=== PATIENT | female | born 1960 | race African-American/Black ===

== ENCOUNTER 2025-08-13 11:42 | Observation (INO) ==
[2025-08-13] MEDS ORDERED: PRECEDEX INJ VIAL ONE (12:09)
[2025-08-13] MEDS ORDERED: KETAMINE HCL ONE (12:09)
[2025-08-13] MEDS ORDERED: XYLOCAINE 2 % (PLAIN) ONE (12:09)
[2025-08-13 13:49] LABS: MEAN PLATELET VOLUME 9.3 fL (7.4-11.0); RED CELL DISTRIBUTION WIDTH 14.4 % (11.6-16.5)
[2025-08-13 14:04] LABS: COR CA(FOR HYPOALB) 9.4 mg/dL (8.5-10.1); COR NA(FOR HYPERGLY) 146 mmol/L (136-145); CREATININE 1.12 mg/dL (0.55-1.02); eGFR NON BLACK RACES 52 (>60)
[2025-08-13 14:25] VITALS: BMI 36.0
[2025-08-13] MEDS: PERCOCET TAB 5/325 MG PO PRN (14:45)
[2025-08-13] MEDS: LR 1,000 ML IV 1,000 ML IV SCH (14:45)
--- NOTE | 2025-08-13 14:45 | EKG ---
Test Reason : pre procedure Blood Pressure : */* mmHG Vent. Rate : 87 BPM Atrial Rate : 87 BPM P-R Int : 158 ms QRS Dur : 82 ms QT Int : 346 ms P-R-T Axes : 54 51 53 degrees QTc Int : 416 ms Sinus rhythm with sinus arrhythmia with occasional premature ventricular complexes Septal infarct , age undetermined Abnormal ECG No previous ECGs available Confirmed by Ren Olson MD ([id number]) on 08/13/2025 5:15:48 PM Referred By: Confirmed By: Ren Olson MD
[2025-08-13] MEDS: LOVENOX INJ 100 MG SYR SC NR (16:39)
[2025-08-13] MEDS: NovoLIN R (or HumuLIN R) SUBCUT PRN (16:40)
[2025-08-13] MEDS: SNACK - Diabetic Appropriate PO SCH (20:00)
[2025-08-13] MEDS: SINGULAIR TAB 10 MG PO SCH (20:43)
[2025-08-14] MEDS ORDERED: HIBICLENS WASH EXT ONE (00:54)
[2025-08-14 05:49] LABS: MEAN PLATELET VOLUME 9.2 fL (7.4-11.0); RED CELL DISTRIBUTION WIDTH 14.6 % (11.6-16.5)
[2025-08-14 06:06] LABS: COR CA(FOR HYPOALB) 9.5 mg/dL (8.5-10.1); COR NA(FOR HYPERGLY) 145 mmol/L (136-145); CREATININE 1.04 mg/dL (0.55-1.02); eGFR NON BLACK RACES 57 (>60)
--- NOTE | 2025-08-14 06:09 | RAD ---
EXAM: Portable chest HISTORY: Preop vascular surgery COMPARISON: None FINDINGS: Heart is mildly enlarged. No congestive heart failure is noted. Aorta is ectatic. Lungs are mildly hypoinflated but free of acute infiltrates. No pleural effusion or pneumothorax identified. Bony thorax is unremarkable. IMPRESSION: Mild cardiomegaly without congestive heart failure Lungs hypoinflated but free of acute infiltrates THIS IS AN ELECTRONICALLY VERIFIED FINAL REPORT 08/14/2025 6:06 AM - Electronically signed by Jerod Foster MD
[2025-08-14] MEDS ORDERED: CONSULT PHARMACY - POTASSIUM & MAGNESIUM XX SCH (07:00)
[2025-08-14] MEDS: MAGNESIUM SULFATE 1 GRAM/100 mL PREMIX 1 G/100 ML BAG IV SCH (09:26)
[2025-08-14] MEDS: HIBICLENS WASH EXT ONE (10:30)
[2025-08-14] MEDS: REGLAN INJ 10 MG VIAL ONE (10:54)
[2025-08-14] MEDS: OFIRMEV IV 1000 MG VIAL 1,000 MG/100 ML VIAL IV ONE (10:54)
[2025-08-14] MEDS: HEPARIN SODIUM INJ 5000 UNITS ONE (10:54)
[2025-08-14] MEDS: ZOFRAN INJ 4 MG VIAL ONE (10:54)
[2025-08-14] MEDS: PEPCID 20 MG VIAL ONE (10:54)
[2025-08-14] MEDS: DIPRIVAN VIAL 20 ML ONE ×3 (10:54→12:52)
[2025-08-14] MEDS: VERSED ONE (10:55)
[2025-08-14] MEDS: FENTANYL VIAL INJ 100 mcg ONE (10:56)
[2025-08-14] MEDS: ANCEF VIAL 1 GRAM ONE (11:10)
[2025-08-14] MEDS: NS 1,000 ML IV 1,000 ML ONE ×2 (11:11→12:10)
[2025-08-14] MEDS: VERSED IVP PRN (11:21)
[2025-08-14] MEDS: ZOFRAN INJ 4 MG VIAL IVP PRN (11:21)
[2025-08-14] MEDS: REGLAN INJ 10 MG VIAL IVP PRN (11:21)
[2025-08-14] MEDS: PEPCID 20 MG VIAL IVP PRN (11:21)
[2025-08-14] MEDS: NS 100 ML IV 100 ML ONE (11:26)
[2025-08-14] MEDS: ANCEF VIAL 1 GRAM IV PRN (11:32)
[2025-08-14] MEDS: NS 1,000 ML IV 800 ML IV PRN (11:32)
[2025-08-14] MEDS: XYLOCAINE 2 % (PLAIN) IVP PRN (11:37)
[2025-08-14] MEDS: PRECEDEX INJ VIAL IVP PRN (11:38)
[2025-08-14] MEDS: KETAMINE HCL IV PRN (11:38)
[2025-08-14] MEDS: OFIRMEV IV 1000 MG VIAL 1,000 MG/100 ML VIAL IV PRN (11:41)
[2025-08-14] MEDS: ROBINUL IVP PRN (11:48)
[2025-08-14] MEDS: ROBINUL ONE (11:48)
[2025-08-14] MEDS: NORMODYNE INJ 20 MG VIAL ONE (11:52)
[2025-08-14] MEDS: HEPARIN 1,000 UNIT/500 ML-NS 3,000 UNIT/1,500 ML IV.SOLN ONE (11:56)
[2025-08-14] MEDS: VISIPAQUE 100 ML ONE (11:56)
[2025-08-14] MEDS: VISIPAQUE 50 ML ONE (11:56)
[2025-08-14] MEDS: MARCAINE 0.5% ONE (11:56)
[2025-08-14] MEDS ORDERED: HEPARIN SODIUM INJ 5000 UNITS IVP PRN (11:57)
[2025-08-14] MEDS: NORMODYNE INJ 20 MG VIAL IVP PRN (12:18)
[2025-08-14] MEDS: APRESOLINE INJ 20 MG VIAL ONE (12:25)
[2025-08-14] MEDS: NICARDIPINE HCL VIAL ONE (12:25)
[2025-08-14] MEDS: APRESOLINE INJ 20 MG VIAL IVP PRN (12:45)
[2025-08-14] MEDS: NEOSTIGMINE INJ IV PRN (12:49)
[2025-08-14] MEDS: FENTANYL VIAL INJ 100 mcg IVP PRN (12:58)
--- NOTE | 2025-08-14 13:25 | OR.IMMED ---
IMMEDIATE POST-OP NOTE Immediate Post-Op Note Date of surgery/procedure: 08/14/25 Pre-Op Diagnosis: Critical ischemia left leg with early gangrenous changes left fifth toe Post-Op Diagnosis: Same, see findings below Procedure: Aortogram, arteriogram left lower extremity, angioplasty proximal left anterior tibial artery, angioplasty left tibioperoneal trunk and proximal peroneal artery, drug-coated balloon angioplasty of the left popliteal artery near total occlusion in 1 segment, atherectomy and stenting of the left superficial femoral artery in the distal and mid section and atherectomy and drug-coated balloon angioplasty of the proximal right superficial femoral Surgeon/Store Team Member: Dallas More MD, FACS Findings: Severely diseased proximal left superficial femoral artery. Complete occlusion of the left mid and distal superficial femoral artery with severe disease, near total occlusion of the popliteal artery just above the knee joint, occluded left posterior tibial artery. Complete occlusion of the takeoff prximal portion of the left anterior tibial artery and severe disease ,near total occlusion of the tibioperoneal trunk and the complete occlusion of the proxoimal left peroneal artery. Estimated Blood Loss: 100cc Complications: none Progress Notes: Patient taken to the floor after procedure. May discharge home later today.
[2025-08-14] MEDS: VITAMIN D3 125 mcg (5,000 UNITS) PO SCH (13:29)
[2025-08-14] MEDS: K-DUR TAB 20 MEQ PO SCH (13:29)
[2025-08-14] MEDS: MAG-OX TAB PO SCH (13:29)
[2025-08-14] MEDS: ZOLOFT PO SCH (13:29)
[2025-08-14] MEDS: COZAAR PO SCH (13:30)
[2025-08-14] MEDS: HYDROCHLOROTHIAZIDE 25 MG TAB PO SCH (13:30)
[2025-08-14] MEDS: LIPITOR TAB 20 MG PO SCH (13:30)
[2025-08-14] MEDS: HEMOCYTE PLUS PO SCH (13:30)
[2025-08-14] MEDS: K-RIDER 10 MEQ/100 ML WATER 10 MEQ/100 ML BAG IV SCH (13:40)
--- NOTE | 2025-08-14 16:03 | DR.H&P ---
H&P History & Physical for Day of: H&P Date: 08/14/25 Chief Complaint Chief Complaint: Ischemia left leg, early gangrenous changes left fifth toe History of Present Illness History of Present Illness: This is a 64-year-old female who presented to my office yesterday with severe pain of her both legs and primarily the left fifth toe with early gangrenous changes. She had CT angiogram showing complete occlusion of the left superficial femoral artery with one-vessel runoff and 90% stenosis of the right superficial femoral artery with one-vessel runoff. Runoff was peroneal vessels bilaterally. Patient admitted and placed on therapeutic subcutaneous Lovenox to be taken to the operative suite today to perform arterial invention of the arteries of the left leg. Not explained to her that still a possibility she may lose her fifth toe on the left side. We will monitor that for now. Past Medical History Past Medical History: COPD, Depression, Diabetes, Dyslipidemia and Hypertension Past Surgical History Surgical History: Family History Family Medical History: Diabetes Mellitus and Hypertension Social History Does patient currently use any type of tobacco product: No Does any household member use tobacco: No Alcohol Use: None Drug Use: None Medications Home Medications: Home Medications Medication Instructions Recorded Confirmed Type atorvastatin 20 mg tablet 20 mg PO DAILY 08/13/2507/26 History cholecalciferol (vitamin D3) 25 25 mcg PO DAILY 08/13/25 History mcg (1,000 unit) tablet ergocalciferol (vitamin D2) 10 mcg 10 mcg PO DAILY 08/13/25 History (400 unit) tablet ferrous sulfate 325 mg (65 mg 650 mg PO QDAY 08/13/25 08/13/25 History iron) tablet (FeroSul) gabapentin 600 mg tablet 600 mg PO BID 08/13/2508/13 History glimepiride 4 mg tablet 8 mg PO DAILY 08/13/2508/13 History hydrochlorothiazide 25 mg tablet 25 mg PO DAILY 08/13/25 History losartan 100 mg tablet 100 mg PO QDAY 08/13/2507/26 History magnesium 250 mg tablet 250 mg PO DAILY 08/13/25 History metformin 1,000 mg tablet 1,000 mg PO BID 08/13/25 History montelukast 10 mg tablet 10 mg PO QDAY 08/13/2508/13 History pioglitazone 45 mg tablet 45 mg PO QDAY 08/13/2508/13 History potassium 99 mg tablet 99 mg PO DAILY 08/13/2507/26 History quetiapine 50 mg tablet 50 mg PO QPM 08/13/25 History sertraline 100 mg tablet 100 mg PO QAM 08/13/2508/13 History vitamin A 10,000 unit tablet 8,000 unit PO DAILY 08/1308/13/25 History Allergies Allergies Allergy/AdvReac Type Severity Reaction Status Date / Time codeine AdvReac Verified 08/13/25 14:17 hydrocodone AdvReac Verified 08/13/25 14:17 Labs 08/14/25 05:26 08/14/25 05:26 Labs: 08/13/25 14:48 Toe - Left Little Wound Gram Stain - Final 08/13/25 14:48 Toe - Left Little Wound Culture - Preliminary Laboratory WBC 8.5 X10^3/uL (3.6-10.0) 08/14/25 05:26 RBC 4.03 X10^6/uL (3.5-5.4) 08/14/25 05:26 Hgb 10.0 g/dL (12.0-16.0) L 08/14/25 05:26 Hct 31.0 % (36.0-47.0) L 08/14/25 05:26 MCV 76.9 fL (80.0-100.0) L 08/14/25 05:26 MCH 24.9 pg (27.0-34.0) L 08/14/25 05:26 MCHC 32.4 g/dL (33.0-35.0) L 08/14/25 05:26 RDW 14.6 % (11.6-16.5) 08/14/25 05:26 Plt Count 275 X10^3/uL (150.0-450.0) 08/14/25 05:26 MPV 9.2 fL (7.4-11.0) 08/14/25 05:26 Neut % (Auto) 50.0 % (42.0-75.0) 08/14/25 05:26 Lymph % (Auto) 39.3 % (21.0-51.0) 08/14/25 05:26 [place] % (Auto) 7.2 % (0.0-13.0) 08/14/25 05:26 Eos % (Auto) 2.5 % (0.9-2.9) 08/14/25 05:26 Baso % (Auto) 1.0 % (0.2-1.0) 08/14/25 05:26 Neut # (Auto) 4.2 x10^3/uL (2.2-4.8) 08/14/25 05:26 Lymph # (Auto) 3.3 X10^3/uL (1.3-2.9) H 08/14/25 05:26 [place] # (Auto) 0.6 x10^3/uL (0.3-0.8) 08/14/25 05:26 Eos # (Auto) 0.2 x10^3/uL (0.0-0.2) 08/14/25 05:26 Baso # (Auto) 0.1 X10^3/uL (0.0-0.1) 08/14/25 05:26 Absolute Nucleated RBC 0.1 /100WBC 08/14/25 05:26 Sodium 143 mmol/L (136-145) 08/14/25 05:26 Corrected Sodium 145 mmol/L (136-145) 08/14/25 05:26 Potassium 3.8 mmol/L (3.5-5.1) 08/14/25 05:26 Chloride 106 mmol/L (98-107) 08/14/25 05:26 Carbon Dioxide 31.0 mmol/L (21-32) 08/14/25 05:26 BUN 21 mg/dL (7-18) H 08/14/25 05:26 Creatinine 1.04 mg/dL (0.55-1.02) H 08/14/25 05:26 Est GFR (MDRD) Af Amer > 60 (>60) 08/14/25 05:26 Est GFR (MDRD) Non-Af 57 (>60) L 08/14/25 05:26 Glucose 190 mg/dL (65-99) H 08/14/25 05:26 POC Glucose (mg/dL) 222 mg/dL (65-99) H 08/14/25 12:18 Calcium 8.5 mg/dL (8.5-10.1) 08/14/25 05:26 Corrected Calcium 9.5 mg/dL (8.5-10.1) 08/14/25 05:26 Magnesium 1.8 mg/dL (2.0-2.9) L 08/14/25 05:26 Total Bilirubin 0.30 mg/dL (0.2-1.0) 08/14/25 05:26 AST 11 Units/L (15-37) L 08/14/25 05:26 ALT 14 Units/L (12-78) 08/14/25 05:26 Alkaline Phosphatase 109 Units/L (46-116) 08/14/25 05:26 Total Protein 6.8 g/dL (6.4-8.2) 08/14/25 05:26 Albumin 2.7 g/dL (3.4-5.0) L 08/14/25 05:26 Globulin 4.1 g/dL (2.5-4.5) 08/14/25 05:26 Albumin/Globulin Ratio 0.7 Ratio (1.1-2.1) L 08/14/25 05:26 Blood Type A POSITIVE 08/14/25 11:30 Antibody Screen Negative 08/14/25 11:22 Review of Systems Constitutional: See HPI Eyes: No Symptoms Reported ENT: No Symptoms Reported Respiratory: No Symptoms Reported Cardiovascular: No Symptoms Reported Gastrointestinal: No Symptoms Reported Genitourinary: No Symptoms Reported Musculoskeletal: No Symptoms Reported Skin: See HPI (early gangrenous changed left 5th toe ) Physical Exam Vital Signs: Vital Signs Temperature 97.7 F Pulse Rate [Left Radial] 79 Pulse Rate 72 Respiratory Rate 14 Respiratory Rate 18 Blood Pressure [Left Arm] 108/64 Blood Pressure 177/86 O2 Sat by Pulse Oximetry 98 O2 Sat by Pulse Oximetry 98 Oriented: Normal, Time, Person and Place Eyes: Normal Ear: Normal Nose: Normal Throat: Normal Respiratory: Clear Throughout Cardiovascular: Normal : Normal Auscultation: Bowel Sounds: Normal Palpation: Normal Tenderness: Normal Skin: Other (early gangrenous changes left 5th toe ) Musculoskeletal: Normal Psychiatric: Normal Mood Description: Calm Affect: Normal Speech Pattern: Clear and Appropriate Assessment/Plan (1) Atherosclerosis of [place] arteries of extremities with rest pain, left leg: Status: Acute Plan: Patient admitted for therapeutic Lovenox, pain control hydration lab work and plan left leg arterial intervention. Left fifth toe will be evaluated after arterial intervention (2) Atherosclerosis of [place] arteries of extremities with rest pain, right leg: Status: Acute Plan: Rest pain of the right leg with 90% stenosis of the right superficial femoral artery and poor runoff. This will be evaluated and treated electively in the future. (3) Type 2 diabetes mellitus without complications: Status: Acute Plan: Sliding scale insulin for now (4) Essential (primary) hypertension: Status: Acute Plan: Home medications (5) Hyperlipidemia: Status: Acute Plan: Home medications (6) COPD (chronic obstructive pulmonary disease): Status: Acute Plan: Home medications Review H&P Reviewed: Yes Patient was examined?: Yes
--- NOTE | 2025-08-14 16:14 | W.DIS.FURT ---
Summary of Discharge Discharge Summary of Date Date of Exam: 08/14/25 Admission Date Date of Admission: 08/13/25 Admission Diagnosis Hospital Course: 64-year-old female seen in the office yesterday with severe rest pain of both lower extremities and gangrenous changes of the left fifth toe with CT angiogram showing complete occlusion of the left superficial femoral artery with one- vessel runoff and greater than 90% stenosis of the right superficial femoral artery with one-vessel runoff. Patient was admitted for pain control and arterial intervention to help prevent further limb loss of the left leg. She was started on therapeutic Lovenox. She was admitted initially through the office with a note .History and physical performed and dictated on August 14. She was taken to the operating s 08/14/2025 [facility] where she underwent on table arteriogram showing complete occlusion of the left superficial femoral artery, severe disease left tibioperoneal trunk, occlusion of left posterior tibial artery occlusion of the proximal anterior tibial artery and occlusion of the proximal peroneal artery. She underwent angioplasty of the anterior tibial artery and peroneal arteries, as well as atherectomy and drug-coated angioplasty left tibioperoneal trunk and left superficial femoral arteries absent flow to the left foot. Her pain is markedly improved. She will be discharged on her usual medications plus aspirin 81 mg daily, Xarelto 2 provide milligrams twice daily, clindamycin 150 mg 4 times daily and Xarelto 2.5 mg twice daily. Patient t will follow-up with me in 1 to 2 weeks as we have a holiday coming up i.e. . Have given her family my personal phone number if is any problems. Recommend she take it easy today and resume usual activity tomorrow. Vital Signs: Vital Signs (72 hours) 08/13/25 12:32 08/13/25 14:12 08/13/25 14:45 Temperature 98.7 F Pulse Rate Pulse Rate [Left Radial] 84 Respiratory Rate 19 19 Blood Pressure Blood Pressure [Left Arm] 133/62 O2 Sat by Pulse Oximetry 99 Oxygen Delivery Method Room Air Room Air 08/13/25 15:45 08/13/25 15:59 08/13/25 19:00 Temperature 98.4 F Pulse Rate Pulse Rate [Left Radial] 84 Respiratory Rate 19 17 Blood Pressure Blood Pressure [Left Arm] 159/74 O2 Sat by Pulse Oximetry 96 Oxygen Delivery Method Room Air Room Air 08/13/25 20:00 08/13/25 20:51 08/13/25 21:51 Temperature 98.7 F Pulse Rate Pulse Rate [Left Radial] 78 Respiratory Rate 18 20 20 Blood Pressure Blood Pressure [Left Arm] 130/77 O2 Sat by Pulse Oximetry 97 Oxygen Delivery Method Room Air 08/14/25 00:00 08/14/25 04:00 08/14/25 04:38 Temperature 98.4 F 98.6 F Pulse Rate Pulse Rate [Left Radial] 81 83 Respiratory Rate 18 17 18 Blood Pressure Blood Pressure [Left Arm] 95/54 120/65 O2 Sat by Pulse Oximetry 97 99 Oxygen Delivery Method Room Air Room Air 08/14/25 05:38 08/14/25 07:00 08/14/25 08:00 Temperature 97.7 F Pulse Rate Pulse Rate [Left Radial] 79 Respiratory Rate 18 18 Blood Pressure Blood Pressure [Left Arm] 108/64 O2 Sat by Pulse Oximetry 98 Oxygen Delivery Method Room Air Room Air 08/14/25 10:55 Temperature Pulse Rate 72 Pulse Rate [Left Radial] Respiratory Rate 14 Blood Pressure 177/86 Blood Pressure [Left Arm] O2 Sat by Pulse Oximetry 98 Oxygen Delivery Method Room Air Labs: Laboratory Last Values WBC 8.5 X10^3/uL (3.6-10.0) 08/14/25 05:26 RBC 4.03 X10^6/uL (3.5-5.4) 08/14/25 05:26 Hgb 10.0 g/dL (12.0-16.0) L 08/14/25 05:26 Hct 31.0 % (36.0-47.0) L 08/14/25 05:26 MCV 76.9 fL (80.0-100.0) L 08/14/25 05:26 MCH 24.9 pg (27.0-34.0) L 08/14/25 05:26 MCHC 32.4 g/dL (33.0-35.0) L 08/14/25 05:26 RDW 14.6 % (11.6-16.5) 08/14/25 05:26 Plt Count 275 X10^3/uL (150.0-450.0) 08/14/25 05:26 MPV 9.2 fL (7.4-11.0) 08/14/25 05:26 Neut % (Auto) 50.0 % (42.0-75.0) 08/14/25 05:26 Lymph % (Auto) 39.3 % (21.0-51.0) 08/14/25 05:26 [place] % (Auto) 7.2 % (0.0-13.0) 08/14/25 05:26 Eos % (Auto) 2.5 % (0.9-2.9) 08/14/25 05:26 Baso % (Auto) 1.0 % (0.2-1.0) 08/14/25 05:26 Neut # (Auto) 4.2 x10^3/uL (2.2-4.8) 08/14/25 05:26 Lymph # (Auto) 3.3 X10^3/uL (1.3-2.9) H 08/14/25 05:26 [place] # (Auto) 0.6 x10^3/uL (0.3-0.8) 08/14/25 05:26 Eos # (Auto) 0.2 x10^3/uL (0.0-0.2) 08/14/25 05:26 Baso # (Auto) 0.1 X10^3/uL (0.0-0.1) 08/14/25 05:26 Absolute Nucleated RBC 0.1 /100WBC 08/14/25 05:26 Sodium 143 mmol/L (136-145) 08/14/25 05:26 Corrected Sodium 145 mmol/L (136-145) 08/14/25 05:26 Potassium 3.8 mmol/L (3.5-5.1) 08/14/25 05:26 Chloride 106 mmol/L (98-107) 08/14/25 05:26 Carbon Dioxide 31.0 mmol/L (21-32) 08/14/25 05:26 BUN 21 mg/dL (7-18) H 08/14/25 05:26 Creatinine 1.04 mg/dL (0.55-1.02) H 08/14/25 05:26 Est GFR (MDRD) Af Amer > 60 (>60) 08/14/25 05:26 Est GFR (MDRD) Non-Af 57 (>60) L 08/14/25 05:26 Glucose 190 mg/dL (65-99) H 08/14/25 05:26 POC Glucose (mg/dL) 222 mg/dL (65-99) H 08/14/25 12:18 Calcium 8.5 mg/dL (8.5-10.1) 08/14/25 05:26 Corrected Calcium 9.5 mg/dL (8.5-10.1) 08/14/25 05:26 Magnesium 1.8 mg/dL (2.0-2.9) L 08/14/25 05:26 Total Bilirubin 0.30 mg/dL (0.2-1.0) 08/14/25 05:26 AST 11 Units/L (15-37) L 08/14/25 05:26 ALT 14 Units/L (12-78) 08/14/25 05:26 Alkaline Phosphatase 109 Units/L (46-116) 08/14/25 05:26 Total Protein 6.8 g/dL (6.4-8.2) 08/14/25 05:26 Albumin 2.7 g/dL (3.4-5.0) L 08/14/25 05:26 Globulin 4.1 g/dL (2.5-4.5) 08/14/25 05:26 Albumin/Globulin Ratio 0.7 Ratio (1.1-2.1) L 08/14/25 05:26 Blood Type A POSITIVE 08/14/25 11:30 Antibody Screen Negative 08/14/25 11:22 Reason For Visit: CRITICAL [facility]LE Discharge Date Discharge Date: 08/14/25 Discharge Diagnosis All Active Problems (Updated 08/14/25 @ 16:02 by Rajat More) COPD (chronic obstructive pulmonary disease) (Acute) Hyperlipidemia (Acute) Essential (primary) hypertension (Acute) Type 2 diabetes mellitus without complications (Acute) Atherosclerosis of [place] arteries of extremities with rest pain, right leg (Acute) Atherosclerosis of [place] arteries of extremities with rest pain, left leg (Acute) Plan of Treatment: Continue with present treatment and follow up plan. Pt is to keep follow up appointment as instructed and take medications as ordered. Discharge Medications Discharge Medications: codeine Adverse Reaction (Verified 08/13/25 14:17) hydrocodone Adverse Reaction (Verified 08/13/25 14:17) CONTINUE taking the following medications atorvastatin 20 mg tablet 20 mg PO DAILY 08/13/25 [History] cholecalciferol (vitamin D3) 25 mcg (1,000 unit) tablet 25 mcg PO DAILY 08/13/25 [History] ergocalciferol (vitamin D2) 10 mcg (400 unit) tablet 10 mcg PO DAILY 08/13/25 [History] ferrous sulfate 325 mg (65 mg iron) tablet (FeroSul) 650 mg PO QDAY 08/13/25 [History] gabapentin 600 mg tablet 600 mg PO BID 08/13/25 [History] glimepiride 4 mg tablet 8 mg PO DAILY 08/13/25 [History] hydrochlorothiazide 25 mg tablet 25 mg PO DAILY 08/13/25 [History] losartan 100 mg tablet 100 mg PO QDAY 08/13/25 [History] magnesium 250 mg tablet 250 mg PO DAILY 08/13/25 [History] metformin 1,000 mg tablet 1,000 mg PO BID 08/13/25 [History] montelukast 10 mg tablet 10 mg PO QDAY 08/13/25 [History] pioglitazone 45 mg tablet 45 mg PO QDAY 08/13/25 [History] potassium 99 mg tablet 99 mg PO DAILY 08/13/25 [History] quetiapine 50 mg tablet 50 mg PO QPM 08/13/25 [History] sertraline 100 mg tablet 100 mg PO QAM 08/13/25 [History] vitamin A 10,000 unit tablet 8,000 unit PO DAILY 08/13/25 [History] Percocet, 5 mg tablets 1 every 6 hours as needed pain, #30 Xarelto 2.5 mg twice daily Aspirin 81 mg daily Clindamycin 150 mg 4 times daily x 10 days Discharge Disposition Assessment: No distress noted. Discharge Plan Discharge Plan Hospital Course: 64-year-old female seen in the office yesterday with severe rest pain of both lower extremities and gangrenous changes of the left fifth toe with CT angiogram showing complete occlusion of the left superficial femoral artery with one- vessel runoff and greater than 90% stenosis of the right superficial femoral artery with one-vessel runoff. Patient was admitted for pain control and arterial intervention to help prevent further limb loss of the left leg. She was started on therapeutic Lovenox. She was admitted initially through the office with a note .History and physical performed and dictated on August 14. She was taken to the operating s 08/14/2025 [facility] where she underwent on table arteriogram showing complete occlusion of the left superficial femoral artery, severe disease left tibioperoneal trunk, occlusion of left posterior tibial artery occlusion of the proximal anterior tibial artery and occlusion of the proximal peroneal artery. She underwent angioplasty of the anterior tibial artery and peroneal arteries, as well as atherectomy and drug-coated angioplasty left tibioperoneal trunk and left superficial femoral arteries absent flow to the left foot. Her pain is markedly improved. She will be discharged on her usual medications plus aspirin 81 mg daily, Xarelto 2 provide milligrams twice daily, clindamycin 150 mg 4 times daily and Xarelto 2.5 mg twice daily. Patient t will follow-up with me in 1 to 2 weeks as we have a holiday coming up i.e. . Have given her family my personal phone number if is any problems. Recommend she take it easy today and resume usual activity tomorrow. Patient Disposition: 01 HOME, SELF-CARE Condition: Stable Health Concerns: Post Hospitalization: new medications and changes needed to prevent readmission or further decline. Pt educated and given instructions on all concerns. Care Plan Goals: Problem: Altered Tissue Perfusion Goal: Adequate Tissue Perfusion Instructions: Follow provided instructions. Follow up with primary physician as directed. Contact primary care physician or report to the closest Emergency Room if condition worsens. Plan of Treatment: Continue with present treatment and follow up plan. Pt is to keep follow up appointment as instructed and take medications as ordered. Assessment: No distress noted. Prescription drug monitoring program results: PDMP reviewed and no concerns identified Prescriptions: New aspirin 81 mg tablet 81 mg PO QDAY Qty: 90 0RF clindamycin HCl [Cleocin HCl] 150 mg capsule 150 mg PO Q6H Qty: 40 0RF oxycodone-acetaminophen [Percocet] 5-325 mg tablet 1 tab PO Q6H MDD 4 PRNQty: 30 0RF rivaroxaban [Xarelto] 2.5 mg tablet 2.5 mg PO BID Qty: 180 3RF Continued gabapentin 600 mg tablet 600 mg PO BID atorvastatin 20 mg tablet 20 mg PO DAILY Patient Comments: [NO ORIGINAL SIG] sertraline 100 mg tablet 100 mg PO QAM pioglitazone 45 mg tablet 45 mg PO QDAY ferrous sulfate [FeroSul] 325 mg (65 mg iron) tablet 650 mg PO QDAY metformin 1,000 mg tablet 1,000 mg PO BID glimepiride 4 mg tablet 8 mg PO DAILY Patient Comments: [NO ORIGINAL SIG] montelukast 10 mg tablet 10 mg PO QDAY hydrochlorothiazide 25 mg tablet 25 mg PO DAILY losartan 100 mg tablet 100 mg PO QDAY quetiapine 50 mg tablet 50 mg PO QPM potassium 99 mg Tablet 99 mg PO DAILY magnesium 250 mg Tablet 250 mg PO DAILY vitamin A 10,000 unit Tablet 8,000 unit PO DAILY cholecalciferol (vitamin D3) 25 mcg (1,000 unit) Tablet 25 mcg PO DAILY ergocalciferol (vitamin D2) 10 mcg (400 unit) Tablet 10 mcg PO DAILY Orders to Discharge Patient Discharge Orders: Discharge (Routine); Ordered 08/14/25 Ordered By: Rajat More Follow ups/Referrals Follow ups/Referrals: Rajat More [STAFF PHYSICIAN, Unknown] - 08/27/25 4:15 pm Instructions Instructions: Bleeding Precautions When on Anticoagulant Therapy, Adult, Fall Prevention in the Home, Adult, [id number], Poor Blood Flow (Peripheral Vascular Disease): What to Know, Endovascular Therapy for Peripheral Vascular Disease: What to Know After, Endovascular Therapy for Peripheral Vascular Disease: What to Expect Stand Alone Forms: Find Help Web Site, Post Hospital Follow Up Care Print Language: [id number]
[2025-08-14 16:35] VITALS: TEMP 97.9; O2SAT 99
[2025-08-14 16:38] VITALS: BP 106/59; PULSE 86; RESP 18
[2025-08-14] MEDS ORDERED: CLEOCIN PO SCH (17:00)
--- NOTE | 2025-08-14 19:00 | DR.OPNOTE ---
OP NOTE Pre-Op Diagnosis: Critical ischemia left leg with gangrenous changes left fifth toe Post-Op Diagnosis: Same, see findings below Procedure Date Date Of Procedure: 08/14/25 Procedure: PROCEDURE: Diagnostic aortogram, diagnostic arteriogram left leg, angioplasty proximal left anterior tibial artery, angioplasty left popliteal artery near total occlusion in 1 segment, atherectomy and drug-eluting stenting of the left superficial femoral artery in the mid and distal sections and atherectomy and drug-coated balloon and patch of the proximal right superficial femoral artery NARRATIVE: The patient was taken to the operative suite and placed in the supine position. The right groin and entire left leg were prepped and draped in sterile fashion. Patient was given intravenous sedation supervised by myself. Timeout for the procedure obtained. Ultrasound used to identify the femoral artery in the right groin and the skin overlying it infiltrated with 0.5% Marcaine. Ultrasound used to guide puncture of the right femoral artery and a 0.012 inch guidewire placed. Incision made over the guidewire at the skin edge with a #11 knife blade and the micro sheath placed over the guidewire into the femoral artery. Small wire exchanged for a 0.035 inch Advantage Glidewire and the micro sheath exchanged for a 5 [place] vascular sheath. Patient given 5000 units of intravenous heparin. Omni catheter placed over the guidewire into the aorta and power injector used to perform aortogram showing patent aorta and iliac arteries with high bifurcation. The Omni catheter was then used to direct the guidewire down the left common iliac artery to the distal left external iliac artery. The Omni catheter exchanged for a Lisbon catheter and sequential arteriograms performed of the left leg showing severely diseased proximal left superficial femoral artery, complete occlusion of the left mid and distal superficial femoral artery with severe disease near total occlusion of the popliteal artery above the knee joint, occluded left posterior tibial artery, complete occlusion of the takeoff of the proximal left anterior tibial artery with reconstitution distally and severe disease near total occlusion of the tibioperoneal trunk including occlusion of the proximal left peroneal artery. The Lisbon catheter removed and over the guidewire the 5 [place] sheath was exchanged for a 7 [place] Catpult Sheath which was parked the distal left external iliac. Lisbon catheter and the 0.035 guidewire used to traverse the arteries of the left leg ultimately ending in left anterior tibial artery all the way to the ankle . This was selective catheterization. Lisbon catheter used to exchange 0.035 inch wire for a 0.014 inch Thruway wire. Over the Thruway wire we placed the Jetstream 2.1 mm/ 3.0 mm atherectomy device and performed atherectomy of the mid and distal left superficial femoral artery .I could not get the device to go any further than the adductor canal. At this point we placed a Jacumba 3 mm x 220 mm balloon across the obstructed portion of the proximal anterior tibial artery and balloon dilated it for 1 minute and then removed. The wire was backed up and then placed down the tibioperoneal trunk into the occluded peroneal artery and distally to the ankle. This was selective catheterization as well. We then balloon dilated the tibioperoneal trunk and the proximal peroneal artery with a 3 mm x 200 mm Jacumba balloon inflated for 1 minute. We then removed this balloon and balloon dilated the popliteal artery near the knee , near complete occlusion with a Brielle 5 mm x 100 mm drug-coated balloon inflating for 3 minutes. This took us up to the adductor canal. This balloon removed and we placed an Esha 6 mm x 150 mm drug-eluting stent from the adductor canal proximal and proximal to this placed an additional 6 mm x 150 mm [employer] Esha drug-eluting stent with 3 mm overlap to thepreviously placed stent . Both these stents were deployed and then proximally the left superficial femoral artery of the left leg dilated with a Brielle 5 mm x 100 mm drug-coated balloon inflated for 3 minutes. Once this was done then we used this balloon to post dilate the Esha stents. Procedure arteriogram was carried out showing excellent flow through all of the stents in the superficial femortal artery and good flow through the popliteal artery and excellent flow into the anterior tibial and tibioperoneal trunk and peroneal arteries. Wires and devices removed from the Catapult sheath. This sheath pulled back int o the aorta and a 0.035 guidewire placed. Catapult sheath exchanged over the wire for a Angio-Seal device used to close the puncture of the right femoral artery. Patient taken to same-day surgery in good condition. Type of Anesthesia: Local (0.5% Marcaine) Anesthesia Comment: plus MAC Findings: Severely diseased proximal left superficial femoral artery, complete occlusion of left mid and distal superficial femoral artery with severe disease near total occlusion of the popliteal artery just above the knee joint, occluded left posterior tibial artery, complete occlusion of the takeoff of the proximal portion of left anterior tibial artery and severe disease, near total occlusion of the tibioperoneal trunk and complete occlusion of the proximal left peroneal artery Type of Fluids Used:: Lactated Ringers Total Amount of Fluid Infused:: 800cc EBL: 100cc Hardware: Esha 6 mm x 150 mm drug-eluting stents x 2 Complications:: none Needle/Sponge Count:: correct Disposition/Condition: Pt. tolerated procedure without difficulty. Taken to [facility] iin stable condition.
[2025-08-14] MEDS ORDERED: LOVENOX INJ 100 MG SYR SC SCH (21:00)
== END 2025-08-14 17:15 | disposition home or self-care (01) ==
LOC: MED/SURG
PROVIDERS: ADMIT Surgery; ATTEND Surgery
DX: X58.XXXA Exposure to other specified factors, initial encounter; S91.105A Unspecified open wound of left lesser toe(s) without damage to nail, initial encounter; R94.31 Abnormal electrocardiogram [ECG] [EKG]; D64.89 Other specified anemias; R79.89 Other specified abnormal findings of blood chemistry; Z01.810 Encounter for preprocedural cardiovascular examination; I11.9 Hypertensive heart disease without heart failure; Y92.9 Unspecified place or not applicable; E78.5 Hyperlipidemia, unspecified; I70.223 Atherosclerosis of native arteries of extremities with rest pain, bilateral legs; E83.42 Hypomagnesemia; E87.0 Hyperosmolality and hypernatremia; E11.65 Type 2 diabetes mellitus with hyperglycemia; J44.9 Chronic obstructive pulmonary disease, unspecified